=== PATIENT | male | born 2000 | race African-American/Black ===

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

== ENCOUNTER 2020-01-10 18:14 | Emergency (ER) | payer MEDICAID ==
[~2020-01-10] VITALS: Ht 172.7 cm; Wt 86.2 kg
[2020-01-10 18:30] VITALS: BP_SYST 123
--- NOTE | 2020-01-10 18:35 | NUR ---
PT WILL WAIT OUTSIDE FOR ER BED TO BECOME AVAIL.
--- NOTE | 2020-01-10 18:40 | NUR ---
PT TO TIRAGE ROOM FOR MD EVALUATION.
--- NOTE | 2020-01-10 18:45 | NUR ---
ER Dr. MURPHY at bedside examining patient.
[2020-01-10 18:54] VITALS: BP_SYST 123
--- NOTE | 2020-01-10 18:54 | NUR ---
Patient given written and verbal discharge instructions and verbalizes understanding. DR.KWAW DIANA IRBY discussed with patient the results and treatment provided. Patient in stable condition. ID arm band removed. Rx of KEFLEX AND SULFACETAMIDE given. Patient educated on pain management and to follow up with PMD. Pain Scale 0/10. Opportunity for questions provided and answered. Medication side effect fact sheet provided.
== END 2020-01-10 18:54 | disposition home or self-care (01) ==
LOC: SED 18:14
DX: H10.501 Unspecified blepharoconjunctivitis, right eye (principal)
CPT/HCPCS: 99283

== ENCOUNTER 2020-11-18 09:54 | Emergency (ER) | payer OTHER, MEDICAID ==
[~2020-11-18] VITALS: Ht 172.7 cm; Wt 86.2 kg
[2020-11-18 10:28] VITALS: BP_SYST 121
[2020-11-18] MEDS ORDERED: HYDROcodone/ACETAMIN 10-325 MG TAB PO ONE (10:45)
[2020-11-18] MEDS ORDERED: IBUPROFEN 800 MG TABLET PO ONE (10:45)
[2020-11-18] MEDS ORDERED: IBUP-1971 PO (12:33)
[2020-11-18] MEDS ORDERED: HYDR-3917 PO (12:33)
[2020-11-18 12:55] VITALS: BP_SYST 121
== END 2020-11-18 12:55 | disposition home or self-care (01) ==
LOC: SED 09:54
DX: S13.4XXA Sprain of ligaments of cervical spine, initial encounter (principal); S00.83XA Contusion of other part of head, initial encounter; S09.90XA Unspecified injury of head, initial encounter; R07.89 Other chest pain; V49.59XA Passenger injured in collision with other motor vehicles in traffic accident, initial encounter; Y93.89 Activity, other specified; Y92.89 Other specified places as the place of occurrence of the external cause; Y99.8 Other external cause status
CPT/HCPCS: 70450-TC; 70486-TC; 71045; 72125-TC; 76376; 99285

== ENCOUNTER 2021-02-08 06:03 | Emergency (ER) | payer MEDICAID ==
[~2021-02-08] VITALS: Ht 177.8 cm; Wt 90.7 kg
[~2021-02-08 06:03] MED LIST: HYDR-3917 PO; IBUP-1971 PO
[2021-02-08 06:12] VITALS: BP_SYST 138
[2021-02-08] MEDS: LevALBUTEROL HCL 1.25 MG/0.5 ML *CONC.* VIAL.NEB (XOPENEX CONC.) INH ONE (06:54)
[2021-02-08 07:17] LABS: BASOPHILS % (AUTO) 0.5 % (0.0-2.0); EOSINOPHILS % (AUTO) 0.4 % (0.0-4.0); HEMATOCRIT 44.7 % (36-54); HEMOGLOBIN 15.1 g/dL (14.0-18.0); LYMPHOCYTES # (AUTO) 1.7 K/uL (1.0-5.5); MEAN CORPUSCULAR HEMOGLOBIN 29 pg (27-31); MEAN CORPUSCULAR HGB CONC 34 % (32-36); MEAN CORPUSCULAR VOLUME 87 fL (79.0-98.0); MONOCYTES # (AUTO) 0.8 K/uL (0.0-1.0); MONOCYTES % (AUTO) 12.1 % (1.7-9.3); NEUTROPHILS # (AUTO) 3.8 K/uL (1.8-7.7); PLATELET COUNT (AUTO) 230 K/uL (130-430); RED BLOOD CELL COUNT(AUTO) 5.15 MIL/uL (4.2-6.2); RED CELL DISTRIBUTION WIDTH 13.2 % (9.0-15.0); WHITE BLOOD COUNT (AUTO) 6.3 K/uL (4.8-10.8)
[2021-02-08 07:25] LABS: BILIRUBIN,URINE NEGATIVE (NEGATIVE); BLOOD, URINE NEGATIVE (NEGATIVE); CLARITY/URINE CLEAR (CLEAR); COLOR,URINE YELLOW (YELLOW); GLUCOSE,URINE NEGATIVE (NEGATIVE); KETONES,URINE NEGATIVE (NEGATIVE); LEUKOCYTE ESTERASE ,URINE NEGATIVE (NEGATIVE); NITRITE, URINE NEGATIVE (NEGATIVE); PROTEIN URINE NEGATIVE (NEGATIVE); UROBILINOGEN,URINE 0.2 (0.2-1.0)
[2021-02-08 07:39] LABS: BARBITURATE, URINE NEGATIVE (NEG <=200)
[2021-02-08 07:40] LABS: BENZODIAZEPINE, URINE NEGATIVE (NEG <=150); CANNABINOID, URINE POSITIVE (NEG <=50); COCAINE, URINE NEGATIVE (NEG <=150); METHAMPHETAMINES SCREEN,URINE POSITIVE (NEG <=500); OPIATE, URINE NEGATIVE (NEG <=100); PHENCYCLIDINE SCREEN,URINE NEGATIVE (NEG <=25); UR TRICYCLIC ANTIDEPRESSANTS NEGATIVE (NEG <=300); URINE AMPHETAMINE NEGATIVE (NEG <=500); URINE METHADONE NEGATIVE (NEG <=200); URINE OXYCODONE SCREEN NEGATIVE (NEG <=100); URINE PROPOXYPHENE SCREEN NEGATIVE (NEG <=300)
[2021-02-08 07:49] LABS: CALCIUM 9.5 mg/dL (8.4-11.0); CREATININE 0.96 mg/dL (0.55-1.30); POTASSIUM 3.4 mmol/L (3.5-5.1)
[2021-02-08 07:54] LABS: ALBUMIN 3.8 g/dL (3.4-4.8); TOTAL BILIRUBIN 0.6 mg/dL (0.0-1.0)
[2021-02-08 09:10] VITALS: BP_SYST 128
== END 2021-02-08 09:10 | disposition home or self-care (01) ==
LOC: SED 06:03
DX: R06.02 Shortness of breath (principal); T50.995A Adverse effect of other drugs, medicaments and biological substances, initial encounter; Z79.899 Other long term (current) drug therapy; Y92.89 Other specified places as the place of occurrence of the external cause
CPT/HCPCS: 36415; 71045; 80053; 80307; 81003; 85025; 93005; 94640; 99285

== ENCOUNTER 2021-09-05 06:49 | Emergency (ER) | payer MEDICAID ==
[~2021-09-05] VITALS: Ht 172.7 cm; Wt 104.3 kg
[2021-09-05 07:10] VITALS: BP_SYST 138
[2021-09-05] MEDS ORDERED: NEO/5DRO7 EACH EYE (07:30)
[2021-09-05 07:37] VITALS: BP_SYST 138
== END 2021-09-05 07:37 | disposition home or self-care (01) ==
LOC: SED 06:49
DX: H11.32 Conjunctival hemorrhage, left eye (principal)
CPT/HCPCS: 99283

== ENCOUNTER 2021-11-28 22:21 | Emergency (ER) | payer MEDICAID ==
[~2021-11-28] VITALS: Ht 172.7 cm; Wt 81.6 kg
[~2021-11-28 22:21] MED LIST changes: +NEO/5DRO7 EACH EYE; +PENI250S2 PO
--- NOTE | 2021-11-28 22:27 | NUR ---
ER Dr.D' Garcia at bedside examining patient.
[2021-11-28 22:30] VITALS: BP_SYST 133
--- NOTE | 2021-11-28 22:30 | NUR ---
PAtient came in to the Emergency room with complains of sore throat proressively geting worse, painful swelling x 1 week duration with mild difficulty of breathing. Denies fever or chills reported. Patient does report generalized fatigue, denies vomiting or diarrhea, denies history of recurrent ear nose and throat infections. Denies dental disease or pending oral surgeries. Patient currently on day #5 of Pen-V therapy without improvement. Patient appears irritable aand anxious. Patient breathing easy, unlabored. Hooked to continuous monitor. Awaiting ER MD to [place].
[2021-11-28] MEDS ORDERED: CLINDAMYCIN 900 mg/50mL D5W 50 ML IV ONE (23:15)
[2021-11-28] MEDS ORDERED: DEXAMETHASONE SOD PHOSPHATE 10 MG/ML VIAL IVP ONE (23:15)
[2021-11-28] MEDS ORDERED: cefTRIAXone 1 GM IVPB PREMIX 50 ML IV ONE (23:15)
[2021-11-28] MEDS ORDERED: NS 1000 ML IV.SOLN IV ONE (23:15)
[2021-11-28 23:58] LABS: HEMOGLOBIN 12.7 g/dL (14.0-18.0); MEAN CORPUSCULAR HGB CONC 34 % (32-36)
[2021-11-29 00:04] LABS: HEMATOCRIT 37.8 % (36-54); MEAN CORPUSCULAR HEMOGLOBIN 28 pg (27-31); MEAN CORPUSCULAR VOLUME 83 fL (79.0-98.0); PLATELET COUNT (AUTO) 205 K/uL (130-430); RED BLOOD CELL COUNT(AUTO) 4.55 MIL/uL (4.2-6.2); RED CELL DISTRIBUTION WIDTH 13.7 % (9.0-15.0); WHITE BLOOD COUNT (AUTO) 11.9 K/uL (4.8-10.8)
[2021-11-29 00:20] LABS: ANION GAP 9 (5-15); CALCIUM 7.9 mg/dL (8.4-11.0); CHLORIDE 98 mmol/L (98-107); CREATININE 0.95 mg/dL (0.55-1.30); GLUCOSE 110 mg/dL (70-99); POTASSIUM 3.7 mmol/L (3.5-5.1); SODIUM SERUM 133 mmol/L (136-145); UREA NITROGEN, BLOOD 8 mg/dL (8-21)
--- NOTE | 2021-11-29 00:31 | NUR ---
covid oral done at bedside and sent to lab
[2021-11-29 00:32] LABS: ALANINE AMINOTRANSFERASE 257 U/L (12-78); ALBUMIN 2.9 g/dL (3.4-4.8); ASPARTATE AMINOTRANSFERASE 199 U/L (10-37)
[2021-11-29 00:39] LABS: GFR AFRICAN AMERICAN 129 mL/min (>90)
[2021-11-29 00:46] LABS: BILIRUBIN,URINE 1+ (NEGATIVE); CLARITY/URINE CLEAR (CLEAR); GLUCOSE,URINE NEGATIVE (NEGATIVE); KETONES,URINE 1+ (NEGATIVE); LEUKOCYTE ESTERASE ,URINE NEGATIVE (NEGATIVE); NITRITE, URINE NEGATIVE (NEGATIVE); PROTEIN URINE TRACE (NEGATIVE)
[2021-11-29 00:51] LABS: BLOOD, URINE TRACE (NEGATIVE); COLOR,URINE STRAW (YELLOW)
[2021-11-29] MEDS ORDERED: iohexoL 240 mgI/mL, 150 ML INFUS..BTL IV ONE (01:34)
[2021-11-29] MEDS ORDERED: ONDANSETRON HCL 4 MG/2 ML VIAL IVP ONE (02:30)
[2021-11-29] MEDS ORDERED: MORPHINE 4 MG INJ. 4 MG/ML VIAL IVP ONE (02:30)
[2021-11-29 03:10] LABS: BACTERIA,URINE None Seen /HPF (None Seen); WBC,URINE 0-3 /HPF (0-3)
[2021-11-29 03:11] LABS: MUCUS,URINE None Seen /LPF (None Seen)
[2021-11-29 03:31] LABS: NEUTROPHILS % (AUTO) 33.2 % (40.0-70.0)
[2021-11-29 03:32] LABS: BAND % (MANUAL) 2 % (0-6); BASOPHILS # (AUTO) 0.1 K/uL (0.0-0.2); BASOPHILS % (AUTO) 0.7 % (0.0-2.0); EOSINOPHILS % (AUTO) 0.2 % (0.0-4.0); LYMPHOCYTES # (AUTO) 6.6 K/uL (1.0-5.5); LYMPHOCYTES % (AUTO) 55.9 % (20.5-51.5); MONOCYTES # (AUTO) 1.2 K/uL (0.0-1.0); NEUTROPHILS # (AUTO) 3.9 K/uL (1.8-7.7)
[2021-11-29 03:33] LABS: ATYPICAL LYMPHOCYTES % 2 % (0-0); BASOPHILS % (MANUAL) 0 % (0-2); BLASTS, MANUAL % 0 % (0-0); EOSINOPHILS % (MANUAL) 0 % (0-7); LYMPHOCYTES % (MANUAL) 42 % (20-46); METAMYELOCYTES % 0 % (0-0); MONOCYTES % (MANUAL) 18 % (0-11); MYELOCYTES % 0 % (0-0); OTHER CELLS,MANUAL % 0 (0-0); PROMYELOCYTES % 0 % (0-0)
--- NOTE | 2021-11-29 03:46 | NUR ---
pt in bed resting eyes closed, pt responive to verbal stimuli. willl monitor as needed
[2021-11-29] MEDS ORDERED: CLIN75SO8 PO (04:38)
[2021-11-29] MEDS ORDERED: IBUP100O PO (04:38)
[2021-11-29] MEDS ORDERED: PRELO PO (04:38)
[2021-11-29 05:01] VITALS: BP_SYST 116
--- NOTE | 2021-11-29 05:29 | NUR ---
Patient given written and verbal discharge instructions and verbalizes understanding. ER MD discussed with patient the results and treatment provided. Patient in stable condition. ID arm band removed. IV catheter removed intact and dressing applied, no active bleeding. multiple Rx given. Patient educated on pain management and to follow up with PMD in 3 days. work excuse note provided Opportunity for questions provided and answered. Medication side effect explained and pt verbalized understanding.
== END 2021-11-29 05:30 | disposition home or self-care (01) ==
LOC: SED 22:21
DX: J02.9 Acute pharyngitis, unspecified (principal); R53.83 Other fatigue; R06.00 Dyspnea, unspecified; Z79.899 Other long term (current) drug therapy; Z20.822 Contact with and (suspected) exposure to COVID-19
CPT/HCPCS: 36415; 70491; 71045; 76376; 80053; 81000; 83605; 83735; 84484; 85007; 85027; 87040; 87426; 93005; 96365; 96367; 96375; 99291; J0696; J1100; J2270; J2405; J3490; Q9966; 85025

== ENCOUNTER 2022-07-24 11:09 | Emergency (ER) | payer MEDICAID ==
[~2022-07-24] VITALS: Ht 175.3 cm; Wt 95.3 kg
[~2022-07-24 11:09] MED LIST changes: +CLIN75SO8 PO; +IBUP100O PO; +PRELO PO
[2022-07-24 12:09] VITALS: BP_SYST 110
[2022-07-24] MEDS ORDERED: DIPHTH,PERTUSS(ACELL),TET VAC 0.5 ML VIAL (Tdap) I.M. ONE (12:30)
[2022-07-24] MEDS ORDERED: LIDOCAINE/EPI 1% 1:100000 20 ML VIAL INJ ONE (12:30)
[2022-07-24] MEDS ORDERED: LIDOCAINE 1%, 20 ML MDV 20 ML ONE (12:43)
[2022-07-24] MEDS ORDERED: IBUPROFEN 800 MG TABLET PO ONE (12:45)
[2022-07-24] MEDS ORDERED: HYDROcodone/ACETAMIN 10-325 MG TAB PO ONE (12:45)
[2022-07-24] MEDS ORDERED: IBUP-1971 PO (13:56)
[2022-07-24] MEDS ORDERED: HYDR-3917 PO (13:56)
== END 2022-07-24 14:21 | disposition home or self-care (01) ==
LOC: SED 11:09
DX: S91.202A Unspecified open wound of left great toe with damage to nail, initial encounter (principal); F17.210 Nicotine dependence, cigarettes, uncomplicated; Z79.899 Other long term (current) drug therapy; V00.831A Fall from motorized mobility scooter, initial encounter; Y93.89 Activity, other specified; Y92.89 Other specified places as the place of occurrence of the external cause; Y99.8 Other external cause status
CPT/HCPCS: 99284; 73620; 90715; 11730; J2001

== ENCOUNTER 2022-09-24 10:20 | Emergency (ER) | payer MEDICAID ==
[~2022-09-24] VITALS: Ht 170.2 cm; Wt 90.7 kg
[2022-09-24 10:20] VITALS: BP_SYST 120
[2022-09-24] MEDS ORDERED: KETOROLAC TROMETHAMINE 30 MG VIAL IM ONE (10:45)
[2022-09-24] MEDS ORDERED: ONDANSETRON 4 MG ODT TAB PO ONE (10:45)
[2022-09-24] MEDS ORDERED: IBUP-1969 PO (11:44)
[2022-09-24] MEDS ORDERED: GUAI5SYR PO (11:44)
[2022-09-24] MEDS ORDERED: ONDA-8 TL (11:44)
[2022-09-24] MEDS ORDERED: DEXAMETHASONE SOD PHOSPHATE 10 MG/ML VIAL PO ONE (11:45)
[2022-09-24 12:56] VITALS: BP_SYST 120
== END 2022-09-24 12:00 | disposition home or self-care (01) ==
LOC: SED 10:20
DX: J02.9 Acute pharyngitis, unspecified (principal); F12.90 Cannabis use, unspecified, uncomplicated; R11.2 Nausea with vomiting, unspecified; R50.9 Fever, unspecified; R51.9 Headache, unspecified; Z79.899 Other long term (current) drug therapy; Z20.822 Contact with and (suspected) exposure to COVID-19
CPT/HCPCS: 99283; 87426; 36415; 96372; 87804 ×2; Q0162; J1100; J1885

== ENCOUNTER 2022-11-19 10:01 | Emergency (ER) | payer MEDICAID ==
[~2022-11-19] VITALS: Ht 172.7 cm; Wt 95.3 kg
[~2022-11-19 10:01] MED LIST changes: +GUAI5SYR PO; +IBUP-1969 PO; +ONDA-8 TL
--- NOTE | 2022-11-19 10:13 | NUR ---
Pt triaged and placed in waiting room. V/S stable, pt ambulatory, no acute distress noted.
[2022-11-19 10:14] VITALS: BP_SYST 123
--- NOTE | 2022-11-19 10:15 | NUR ---
Pt walked in to ER with c/o left knee pain 9/10 s/p hearing a "pop" while helping a friend move. No swelling noted, pt is able to ambulate without assistance. V/S stable.
--- NOTE | 2022-11-19 10:21 | NUR ---
DR ROPER OUT TO TRIAGE ROOM FOR EVALUATION
[2022-11-19] MEDS ORDERED: TRAM50TA2 PO (11:28)
[2022-11-19] MEDS ORDERED: IBUP-1971 PO (11:28)
--- NOTE | 2022-11-19 11:50 | NUR ---
Patient given written and verbal discharge instructions and verbalizes understanding. ER MD discussed with patient the results and treatment provided. Patient in stable condition. ID arm band removed. Rx of tramadol and motrin given. Patient educated on pain management and to follow up with PMD. Pain Scale 0. Opportunity for questions provided and answered. Medication side effect fact sheet provided.
[2022-11-19 11:59] VITALS: BP_SYST 123
== END 2022-11-19 11:50 | disposition home or self-care (01) ==
LOC: SED 10:01
DX: S83.92XA Sprain of unspecified site of left knee, initial encounter (principal); Z79.899 Other long term (current) drug therapy; X58.XXXA Exposure to other specified factors, initial encounter; Y93.89 Activity, other specified; Y92.89 Other specified places as the place of occurrence of the external cause; Y99.8 Other external cause status
CPT/HCPCS: 73564; 99283

== ENCOUNTER 2023-08-15 13:23 | Emergency (ER) | payer MEDICAID ==
[~2023-08-15] VITALS: Ht 172.7 cm; Wt 93.0 kg
[~2023-08-15 13:23] MED LIST changes: +PRED15SO73 PO; -PRELO PO; +TRAM50TA2 PO
[2023-08-15 14:03] VITALS: BP_SYST 120; PULSE 65; RESP 16; TEMP 98.1; O2SAT 99
[2023-08-15] MEDS ORDERED: IBUP-1969 PO (15:53)
[2023-08-15] MEDS ORDERED: CEPH-548 PO (15:53)
[2023-08-15] MEDS ORDERED: DICL20GE TP (15:53)
[2023-08-15 19:17] VITALS: BP_SYST 120; PULSE 65; RESP 16; TEMP 98.1; O2SAT 99
== END 2023-08-15 16:11 | disposition home or self-care (01) ==
LOC: SED 13:23
DX: L02.422 Furuncle of left axilla (principal); L73.2 Hidradenitis suppurativa; Z79.899 Other long term (current) drug therapy
CPT/HCPCS: 99283

== ENCOUNTER 2024-02-21 21:51 | Emergency (ER) | payer MEDICAID ==
[~2024-02-21] VITALS: Ht 177.8 cm; Wt 90.7 kg
[~2024-02-21 21:51] MED LIST changes: +CEPH-548 PO; +DICL20GE TP
[2024-02-21 22:17] VITALS: BP_SYST 101; PULSE 96; RESP 20; TEMP 96.7; O2SAT 97
[2024-02-22] MEDS: IBUPROFEN 600 MG TABLET PO ONE (01:41)
[2024-02-22] MEDS ORDERED: NAPR-1172 PO (01:59)
[2024-02-22 02:06] VITALS: BP_SYST 101; PULSE 96; RESP 20; TEMP 96.7; O2SAT 97
== END 2024-02-22 02:03 | disposition home or self-care (01) ==
LOC: SED 21:51
DX: S01.511A Laceration without foreign body of lip, initial encounter (principal); K08.89 Other specified disorders of teeth and supporting structures; Z79.899 Other long term (current) drug therapy; Z79.2 Long term (current) use of antibiotics; W18.39XA Other fall on same level, initial encounter; Y93.89 Activity, other specified; Y92.89 Other specified places as the place of occurrence of the external cause; Y99.8 Other external cause status
CPT/HCPCS: 70450-TC; 99284